=== PATIENT | female | born 1985 | race Caucasian/White ===

== ENCOUNTER → 2016-07-07 | Outpatient (CLI) | payer OTHER, MEDICAID ==
[~2016-07-07] MED LIST: MACROBID 100 M100 MG PO; VITAFOL-OB+DHA1 KIT PO
== END ==
LOC: RAD 11:06
DX: E03.9 Hypothyroidism, unspecified (principal); E01.0 Iodine-deficiency related diffuse (endemic) goiter; E04.1 Nontoxic single thyroid nodule

== ENCOUNTER 2016-12-22 10:00 | Outpatient (RCR) | payer OTHER, MEDICAID ==
[2015-12-07 11:18] VITALS: BP 147/86
== END 2016-12-22 10:30 | disposition home or self-care (01) ==
LOC: PT 10:00
DX: M54.2 Cervicalgia (principal); M25.519 Pain in unspecified shoulder; M54.9 Dorsalgia, unspecified
CPT/HCPCS: G0283-GP